=== PATIENT | male | born 1945 | race Caucasian/White ===

== ENCOUNTER → 2020-05-01 | Outpatient (CLI) | payer MEDICARE ==
[~2020-05-01] MED LIST: COSOPT EYE DROP10 ML EYELF; ELIQUIS2.5 MG PO; ENDOCET 7.5-321 EACH PO; FINASTERIDE5 MG PO; LATANOPROST 0.7.5 ML OP; LOSARTAN POTAS100 MG PO; NORVASC5 MG PO; POTASSIUM CHLO10 MEQ PO; VITAMIN B-121000 MCG PO; VITAMIN D21250 MCG PO
[2020-05-01 10:00] LABS: HEMOGLOBIN 13.3 gm/dl (14.0-17.5); RED BLOOD COUNT 4.17 M/UL (4.20-5.50); WHITE BLOOD COUNT 6.7 K/UL (4.5-11.0)
[2020-05-01 10:20] LABS: BUN/CREATININE RATIO 19 (0-10)
== END ==
LOC: OPSV2 09:00 → EDSTATUS 09:00 → OPSV2 09:03
PROVIDERS: Orthopaedic Surgery
DX: Z01.812 Encounter for preprocedural laboratory examination (principal); M17.11 Unilateral primary osteoarthritis, right knee; I10 Essential (primary) hypertension
CPT/HCPCS: 36415; 80048; 85025; 87081

== ENCOUNTER → 2020-05-13 | Outpatient (CLI) | payer MEDICARE ==
[2020-05-13 10:24] LABS: BUN/CREATININE RATIO 20 (0-10)
== END ==
LOC: LAB 09:26
PROVIDERS: Orthopaedic Surgery
DX: Z01.812 Encounter for preprocedural laboratory examination (principal); M17.11 Unilateral primary osteoarthritis, right knee; I10 Essential (primary) hypertension
CPT/HCPCS: 80048; 86850; 86900; 86901

== ENCOUNTER 2020-05-14 09:08 | Day surgery (SDC) | payer MEDICARE ==
[~2020-05-14] VITALS: Ht 185.4 cm; Wt 134.3 kg
[2020-05-14] MEDS ORDERED: POTASSIUM CHLO10 MEQ PO (11:05)
[2020-05-14] MEDS ORDERED: COSOPT EYE DROP10 ML EYELF (11:05)
[2020-05-14] MEDS ORDERED: LOSARTAN POTAS100 MG PO (11:05)
[2020-05-14] MEDS ORDERED: NORVASC5 MG PO (11:06)
[2020-05-14] MEDS ORDERED: VITAMIN D21250 MCG PO (11:06)
[2020-05-14] MEDS ORDERED: LATANOPROST 0.7.5 ML OP (11:06)
[2020-05-14] MEDS ORDERED: VITAMIN B-121000 MCG PO (11:07)
[2020-05-14] MEDS ORDERED: FINASTERIDE5 MG PO (11:07)
[2020-05-14] MEDS ORDERED: ELIQUIS2.5 MG PO (12:44)
[2020-05-14] MEDS ORDERED: ENDOCET 7.5-321 EACH PO (12:44)
[2020-05-14 19:19] LABS: HEMOGLOBIN 12.4 gm/dl (14.0-17.5); RED BLOOD COUNT 3.9 M/UL (4.20-5.50); WHITE BLOOD COUNT 13.8 K/UL (4.5-11.0)
[2020-05-15 05:26] LABS: HEMOGLOBIN 10.7 gm/dl (14.0-17.5)
[2020-05-15 05:27] LABS: RED BLOOD COUNT 3.43 M/UL (4.20-5.50)
[2020-05-15 05:51] LABS: BUN/CREATININE RATIO 29 (0-10)
--- NOTE | 2020-05-15 09:32 | NUR ---
UPON INITIAL PHYSICAL ASSESSMENT, BLOODY BANDAGE WAS NOTED ON PT DRESSING /AGUSTINA. I REMOVED THE AGUSTINA TO FIND THE HEMOVAC HAD COME OUT. I APPLIED PRESSURE DRESSING TO SITE WITH 4X4 AND ABD AND WRAPPED WITH NEW AGUSTINA BANDAGE. MADE AWARE.
--- NOTE | 2020-05-15 13:59 | NUR ---
REPORT CALLED TO KM AT [facility]
== END 2020-05-15 15:32 | disposition home or self-care (01) ==
LOC: OR 09:08 → M/S 15:46 → OR 05-15 15:32
PROVIDERS: Family Medicine; Orthopaedic Surgery
DX: M17.11 Unilateral primary osteoarthritis, right knee (principal); I10 Essential (primary) hypertension; F17.200 Nicotine dependence, unspecified, uncomplicated; Z86.69 Personal history of other diseases of the nervous system and sense organs; Z98.49 Cataract extraction status, unspecified eye; Z20.822 Contact with and (suspected) exposure to COVID-19; Z85.118 Personal history of other malignant neoplasm of bronchus and lung
CPT/HCPCS: 36415; 73560; 80048; 85025; 85027; 97110-GP-CQ; 97116-GP-CQ; 97161; 97165; 97535; C1776; J0690; J1100; J1885; J2001; J2370; J2704; J2795; J3010; J3370; J7050; J7120